=== PATIENT | female | born 1975 | race Caucasian/White ===

== ENCOUNTER 2017-11-02 19:29 | Emergency (ER) | payer BC ==
--- NOTE | 2017-11-02 19:32 | UC ---
Lower Extremity/Ankle HPI - HPI Summary HPI Summary: 42 yo female presents with right ankle pain. She tells me that around 0900 this morning she was walking down stairs at home and inverted/plantar flexed her ankle on the step. Had immediate pain and has been limping since. Has not taken anything for pain. Denies numbness or tingling. Has had bunion surgery on this foot in the past. - History of Current Complaint Stated Complaint: RT ANHKLE INJ Time Seen by Provider: 11/02/17 19:32 Hx Obtained From: Patient Onset/Duration: Sudden Onset Severity Initially: Moderate Severity Currently: Moderate Pain Intensity: 5 Pain Scale Used: 0-10 Numeric Aggravating Factor(s): Standing, Ambulation Alleviating Factor(s): Rest Able to Bear Weight: Yes - Allergies/Home Medications Allergies/Adverse Reactions: Allergies Allergy/AdvReac Type Severity Reaction Status Date / Time Sulfa (Sulfonamide Allergy Hives Verified 11/02/17 19:54 Antibiotics) Home Medications: Home Medications Amlodipine Besylate [Norvasc 5 mg tab] 5 mg PO DAILY 11/02/17 [History Confirmed 11/02/17] Ibuprofen 600 mg PO Q8HR 11/02/17 [History Confirmed 11/02/17] PMH/Surg Hx/FS Hx/Imm Hx Previously Healthy: Yes Cardiovascular History: Hypertension - Surgical History Surgical History: Yes Surgery Procedure, Year, and Place: [facility] 2013. Buion surgery - Family History Known Family History: Negative: Cardiac Disease, Hypertension, Diabetes - Social History Occupation: Employed Full-time Lives: With Family Alcohol Use: None Substance Use Type: None Smoking Status (MU): Never Smoked Tobacco Review of Systems Constitutional: Negative Skin: Negative Respiratory: Negative Cardiovascular: Negative Neurovascular: Negative Musculoskeletal: Other: - Right ankle pain Neurological: Negative Psychological: Negative All Other Systems Reviewed And Are Negative: Yes Physical Exam - Summary Physical Exam Summary: GENERAL: NAD. WDWN. No pain distress. SKIN: No rashes, sores, lesions, or open wounds. NECK: Supple. Nontender. No lymphadenopathy. CHEST: No accessory muscle use. Breathing comfortably and in no distress. CV: RRR. Without m/r/g. Pulses intact PT and DP. Brisk cap refill. MSK: RIGHT ANKLE: Lateral malleolus inferior TTP. FROM. Strength 5/5. Mild edema. No obvious bony deformities. Negative talar tilt. No increased laxity. Negative [place] test. NEURO: Alert. Sensations intact and symmetric B/L LEs PSYCH: Age appropriate behavior. Triage Information Reviewed: Yes Lower Extremity Course/Dx - Course Course Of Treatment: XR: IMPRESSION: SOFT TISSUE SWELLING. NO ACUTE OSSEOUS INJURY. IF SYMPTOMS PERSIST, RECOMMEND REPEAT. IMAGING. Suspect ankle sprain. Gel ankle splint and ELIZABETH wrap. Ibuprofen prn pain. - Differential Dx/Diagnosis Provider Diagnoses: Right ankle sprain Discharge - Sign-Out/Discharge Documenting (check all that apply): Discharge/Admit/Transfer - Discharge Plan Condition: Stable Disposition: HOME Patient Education Materials: Ankle Sprain (DC) Referrals: Non Staff,Doctor [Medical Doctor] - Additional Instructions: If you develop a fever, shortness of breath, chest pain, new or worsening symptoms - please call your PCP or go to the ED. Your blood pressure was high at todays visit. Please see your primary provider within 4 weeks for recheck and re-evaluation. 1) Rest, Ice, and Elevate your ankle as much as possible over the next 24- 48hours 2) Use your ankle splint as needed for support and comfort. May take 600mg ibuprofen every 6-8hrs as needed for pain 3) Activities as tolerated - Billing Disposition and Condition Condition: STABLE Disposition: HOME
[2017-11-02 19:58] VITALS: BP 137/88
--- NOTE | 2017-11-02 20:15 | RAD ---
HISTORY: Ankle inversion, lateral pain COMPARISONS: None VIEWS: 3, Frontal, lateral, and oblique views of the right ankle FINDINGS: BONE DENSITY: Normal. BONES: There is no displaced fracture. JOINTS: There is no arthropathy. ALIGNMENT: There is no dislocation. SOFT TISSUES: There is mild circumferential soft tissue swelling. OTHER FINDINGS: None. IMPRESSION: SOFT TISSUE SWELLING. NO ACUTE OSSEOUS INJURY. IF SYMPTOMS PERSIST, RECOMMEND REPEAT IMAGING.
== END 2017-11-02 20:32 | disposition home or self-care (01) ==
LOC: UCCORT 19:29
DX: S93.401A Sprain of unspecified ligament of right ankle, initial encounter (principal); X50.1XXA Overexertion from prolonged static or awkward postures, initial encounter; Y93.9 Activity, unspecified; Y92.008 Other place in unspecified non-institutional (private) residence as the place of occurrence of the external cause; Z88.2 Allergy status to sulfonamides; I10 Essential (primary) hypertension
CPT/HCPCS: 99213; G0463